=== PATIENT | female | born 1990 | race Caucasian/White ===

== ENCOUNTER 2023-11-09 22:59 | Emergency (ER) | payer OTHER ==
[~2023-11-09] VITALS: Ht 160 cm; Wt 59.3 kg
[~2023-11-09 22:59] MED LIST: PRILOSEC 20MG20 MG PO; ZOFRAN ODT4 MG PO
[2023-11-10 00:12] LABS: BASO # 0.01 K/mm3 (0.02-0.10); EOS % 1.5 % (1.0-5.0); HEMATOCRIT 35.4 % (37.0-47.0); HEMOGLOBIN 12.1 g/dL (12.5-16.0); LYMPH# 1.74 K/mm3 (1.50-4.00); MEAN CELL VOLUME 87 fl (78-100); MEAN CORPUSCULAR HEMOGLOBIN 30 pg (27-31); MEAN CORPUSCULAR HGB CONC 34 g/dL (33-37); MEAN PLATELET VOLUME 9.9 fl (7.4-10.4); MONO # 0.42 K/mm3 (0.20-0.80); NEU # 4.18 K/mm3 (1.40-6.50); PLATELET COUNT 215 K/mm3 (130-400); RED BLOOD COUNT 4.09 M/mm3 (4.10-5.30); RED CELL DISTRIBUTION WIDTH 12.9 % (11.5-14.5); WHITE BLOOD COUNT 6.5 K/mm3 (4.8-10.8)
[2023-11-10 00:25] LABS: CALCIUM 9.4 mg/dL (8.3-10.5)
[2023-11-10] MEDS ORDERED: ZOFRAN ODT4 MG PO (02:45)
[2023-11-10 02:57] VITALS: BP 112/63
== END 2023-11-10 03:06 | disposition home or self-care (01) ==
LOC: ED 22:59
PROVIDERS: Family Medicine
DX: O99.281 Endocrine, nutritional and metabolic diseases complicating pregnancy, first trimester (principal); E86.9 Volume depletion, unspecified; Z91.040 Latex allergy status; Z3A.09 9 weeks gestation of pregnancy
CPT/HCPCS: J7030

== ENCOUNTER → 2023-11-12 | Outpatient (CLI) | payer OTHER | LOC: RAD 08:00 | DX: K82.8 Other specified diseases of gallbladder (principal) ==

== ENCOUNTER → 2024-06-09 | Outpatient (CLI) | payer OTHER, MEDICAID | LOC: RAD 16:20 | DX: M54.2 Cervicalgia (principal) ==

== ENCOUNTER → 2024-07-16 | Outpatient (CLI) | payer OTHER, MEDICAID | LOC: RAD 07-14 09:30 | DX: H53.123 Transient visual loss, bilateral (principal) ==